=== PATIENT | female | born 1975 | race Caucasian/White ===

== ENCOUNTER → 2017-12-30 11:55 | Outpatient (CLI) | payer OTHER, SELFPAY ==
--- NOTE | 2017-12-30 12:03 | XR_ITS ---
XR chest 2V HISTORY: ITS.REASON: PNEUMONIA ORDERING PHYSICIAN: Darlin Cummings PATIENT AGE: 42 years COMPARISON: None FINDINGS: Unremarkable cardiovascular structures. Patchy increased density is present in the left lung base consistent with pneumonia. The remaining lungs are clear. No effusions No acute bony anomalies. IMPRESSION: Patchy left lower lobe pneumonia
== END ==
PROVIDERS: PCP Nurse Practitioner Family; Visit Provider Nurse Practitioner Family
DX: J18.9 Pneumonia, unspecified organism (principal)
CPT/HCPCS: 71046

== ENCOUNTER → 2018-01-16 15:29 | Outpatient (CLI) | payer OTHER, SELFPAY ==
--- NOTE | 2018-01-16 15:34 | XR_ITS ---
XR shoulder LT min 2V HISTORY: ITS.REASON: LEFT SHOULDER PAIN ORDERING PHYSICIAN: Yris Dillon MD PATIENT AGE: 42 years Comparison: None FINDINGS: No fracture or dislocation. No lytic or blastic change. There is normal mineralization. The joint spaces are well-preserved. No significant degenerative/arthritic changes. No erosive changes evident. IMPRESSION: Negative, no acute finding
== END ==
PROVIDERS: PCP Family Medicine; Visit Provider Family Medicine
DX: M25.512 Pain in left shoulder (principal)
CPT/HCPCS: 73030

== ENCOUNTER → 2019-07-15 14:00 | Outpatient (CLI) | payer OTHER, SELFPAY ==
--- NOTE | 2019-07-15 14:05 | XR_ITS ---
PROCEDURE: XR CHEST 2V CLINICAL HISTORY: BRONCHITIS COMPARISON: CXR CHEST(2 VIEWS-NOT PORTABLE) from 05/13/2013 CXR CHEST(2 VIEWS-NOT PORTABLE) from 12/26/2016 CXR2V XR chest 2V from 12/30/2017 FINDINGS: The cardiomediastinal silhouette and pulmonary vascularity are within normal limits. There is hyperinflation with some eventration of the diaphragms. No lobar consolidation or collapse. No acute bony abnormalities. IMPRESSION: Hyperinflation which may be seen with small airway disease otherwise negative Dictated by: Rusty Dinero MD 07/15/2019 14:28 Electronically signed by Rusty Dinero MD in [place] 07/15/2019 14:28
== END ==
PROVIDERS: PCP Family Medicine; Visit Provider Family Medicine
DX: J45.20 Mild intermittent asthma, uncomplicated (principal)
CPT/HCPCS: 71046

== ENCOUNTER → 2020-01-18 13:06 | Outpatient (CLI) | payer OTHER, SELFPAY ==
--- NOTE | 2020-01-18 13:14 | XR_ITS ---
PROCEDURE: XR CHEST PORTABLE CLINICAL HISTORY: COVID TEST Pneumonia COMPARISON: DX CXR CHEST(2 VIEWS-NOT PORTABLE) from 12/26/2016 CR CXR2V XR chest 2V from 12/30/2017 CR XR CHEST 2V from 07/15/2019 FINDINGS: The cardiomediastinal silhouette and pulmonary vascularity are within normal limits. Opacification is present in the lower lobe consistent with pneumonia. No acute bony abnormalities. IMPRESSION: Right lower lobe pneumonia Dictated by: Rusty Dinero MD 01/18/2020 13:57 Rusty Dinero MD in [facility] 01/18/2020 13:57
[2020-01-18 14:56] LABS: Basophils # 0.1 K/mm3 (0-0.2); Basophils % 0.5 % (0.1-2.0); Eosinophils # 0.5 K/mm3 (0.0-0.4); Eosinophils % 4.1 % (0.1-12.0); Hematocrit 40.5 % (37.0-47.0); Hemoglobin 13.4 g/dL (12.2-16.2); Lymphocytes # 2.8 K/mm3 (0.7-4.5); Lymphocytes % 24.3 % (10-50); Mean Corpuscular Hemoglobin 30.9 pg (27.0-31.2); Mean Corpuscular Volume 93.5 fl (81-99); Monocytes # 0.7 K/mm3 (0.1-1.0); Monocytes % 6.2 % (1.7-9.3); Neutrophils # 7.4 K/mm3 (1.8-7.8); Platelet Count 277 K/mm3 (142-424); Red Blood Count 4.33 M/mm3 (4.20-5.40); White Blood Count 11.4 K/mm3 (4.8-10.8)
[2020-01-20 15:43] LABS: Covid-19 Nasal PCR Sendout Lex Not Detected
== END ==
PROVIDERS: PCP Family Medicine; Visit Provider Family Medicine
DX: Z03.818 Encounter for observation for suspected exposure to other biological agents ruled out (principal)
CPT/HCPCS: 36415; 71045; 85025; U0004

== ENCOUNTER → 2020-02-09 12:30 | Outpatient (CLI) | payer OTHER, SELFPAY ==
--- NOTE | 2020-02-09 12:35 | XR_ITS ---
PROCEDURE: XR CHEST PORTABLE CLINICAL HISTORY: COVID 19 Follow-up pneumonia COMPARISON: CR CXR2V XR chest 2V from 12/30/2017 CR XR CHEST 2V from 07/15/2019 CR XR CHEST PORTABLE from 01/18/2020 FINDINGS: The cardiomediastinal silhouette and pulmonary vascularity are within normal limits. There remains consolidation in the right lung base may be slightly improved. The remaining lungs are clear. No acute bony abnormalities. IMPRESSION: Persistent right lower lobe infiltrate which may be slightly improved Dictated by: Rusty Dinero MD 02/09/2020 13:34 Rusty Dinero MD in [facility] 02/09/2020 13:34
[2020-02-09 13:20] LABS: Basophils # 0.1 K/mm3 (0-0.2); Basophils % 0.7 % (0.1-2.0); Eosinophils # 0.3 K/mm3 (0.0-0.4); Eosinophils % 2.9 % (0.1-12.0); Hematocrit 42.4 % (37.0-47.0); Hemoglobin 13.9 g/dL (12.2-16.2); Lymphocytes # 2.5 K/mm3 (0.7-4.5); Lymphocytes % 20.9 % (10-50); Mean Corpuscular HGB Conc 32.7 g/dL (31.8-35.4); Mean Corpuscular Volume 91.7 fl (81-99); Mean Platelet Volume 7.9 fl (7.4-10.4); Monocytes # 0.8 K/mm3 (0.1-1.0); Monocytes % 6.5 % (1.7-9.3); Neutrophils # 8.1 K/mm3 (1.8-7.8); Platelet Count 260 K/mm3 (142-424); Red Blood Count 4.63 M/mm3 (4.20-5.40); Red Cell Distribution Width 13.3 % (11.5-17.5); White Blood Count 11.8 K/mm3 (4.8-10.8)
[2020-02-10 09:31] LABS: Covid-19 Nasal PCR Sendout P&C NEGATIVE
== END ==
PROVIDERS: PCP Nurse Practitioner; Visit Provider Nurse Practitioner
DX: Z03.818 Encounter for observation for suspected exposure to other biological agents ruled out (principal)
CPT/HCPCS: 36415; 71045; 85025; U0004

== ENCOUNTER → 2020-03-07 12:37 | Outpatient (CLI) | payer OTHER, SELFPAY ==
--- NOTE | 2020-03-07 12:42 | XR_ITS ---
PROCEDURE: XR CHEST 2V CLINICAL HISTORY: PNEUMONIA OF RT LOWER LOBE DUE TO INFECTIOUS ORGANISM COMPARISON: CR XR CHEST PORTABLE from 02/09/2020 FINDINGS: The cardiomediastinal silhouette and pulmonary vascularity are within normal limits. Consolidation once again noted in the right lung base which may be slightly improved. New area of consolidation noted within the lingula. Upper lobes are clear No acute bony abnormalities. IMPRESSION: Mixed response with some improvement in the right basilar pneumonia but with developing pneumonia within the lingula Dictated by: Rusty Dinero MD 03/07/2020 14:55 Rusty Dinero MD in [facility] 03/07/2020 14:55
== END ==
PROVIDERS: PCP Family Medicine; Visit Provider Family Medicine
DX: J18.9 Pneumonia, unspecified organism (principal)
CPT/HCPCS: 71046

== ENCOUNTER → 2020-06-14 13:43 | Outpatient (CLI) | payer OTHER, SELFPAY ==
--- NOTE | 2020-06-14 13:43 | CT_ITS ---
PROCEDURE: CT HIGH RESOLUTION CHEST CLINICAL HISTORY: Bronchiectasis Evaluate for bronchiectasis Ongoing cough and drainage Pneumonia 12/2019. COMPARISON: DX XR CHEST 2V from 03/07/2020 TECHNIQUE: Axial images obtained with sagittal and coronal reformats. All CT scans at the facility use one or more dose reduction, viz: automated exposure control, ma/kV adjustment per patient size (including targeted exams where dose is matched to indication, i.e. head), or iterative reconstruction technique. FINDINGS: Calcifications are present in the thyroid gland on both sides. Normal thyroid size. No mediastinal or hilar mass or adenopathy. There are postsurgical changes from prior gastric bypass surgery. There are few scattered small pulmonary nodular opacities including a 3 mm nodule in the right upper lobe image 23, 4 mm noncalcified nodule right lower lobe image 40, 3 mm noncalcified nodule right lower lobe image 40, 4 mm noncalcified nodule right lower lobe image 45, 5 mm noncalcified nodule left lower lobe image 42, 3 mm noncalcified nodule left lower lobe image 34. Within the right middle lobe there is some consolidation with atelectatic change with scattered tree in bud opacities. There is volume loss in the medial aspect of the lingula. High-resolution images are obtained demonstrating some minimal bronchiectasis in the medial aspect of the right middle lobe. Minimal bronchiectasis within the lingula as well. No interstitial lung disease is evident. No acute bony anomalies. IMPRESSION: 1. There is mild consolidation/volume loss and scattered tree in bud opacities in the right middle lobe with some mild bronchiectasis. There is consolidation/volume loss within the lingula with minimal bronchiectasis. 2. Scattered small pulmonary nodules. These are 5 mm or less. Consider 6-12 month follow-up to confirm stability. Dictated by: Rusty Dinero MD 06/23/2020 12:13 Rusty Dinero MD in [place] 06/23/2020 12:13
--- NOTE | 2020-06-14 15:15 | PC.NURSE ---
PFT Completed without complication. Albuterol 0.083% given via HHN, per protocol, Pt tolerated tx well.
== END ==
PROVIDERS: PCP Family Medicine; Visit Provider Internal Medicine Pulmonary Disease
DX: J18.9 Pneumonia, unspecified organism (principal)
CPT/HCPCS: 71250; 94060; 94726; 94729

== ENCOUNTER → 2020-07-01 12:13 | Outpatient (CLI) | payer OTHER, SELFPAY | PROVIDERS: Visit Provider Internal Medicine Pulmonary Disease | DX: Z20.822 Contact with and (suspected) exposure to COVID-19 (principal) | CPT/HCPCS: 36415; U0003 ==

== ENCOUNTER 2020-07-04 08:36 | Day surgery (SDC) | payer OTHER, SELFPAY ==
[2020-06-29 13:26] VITALS: BMI 24.6
[2020-07-04] VITALS (11 sets, daily range): BP systolic 111–151; BP diastolic 71–98; PULSE 59–96; RESP 14–18; TEMP 36.4–36.7; O2SAT 96–100
--- NOTE | 2020-07-04 12:20 | XR_ITS ---
PROCEDURE: XR CHEST PORTABLE CLINICAL HISTORY: bronchoscopy Follow-up bronchoscopy COMPARISON: CR XR CHEST PORTABLE from 02/09/2020 DX XR CHEST 2V from 03/07/[address] HIGH RESOLUTION CHEST from 06/14/2020 CR XR CHEST AP from 07/04/2020 FINDINGS: The cardiomediastinal silhouette and pulmonary vascularity are within normal limits. There is no evidence of pneumothorax. There is increased density in the right lower lung zone consistent with pneumonia which appears slightly worse from 02/09/2020. Infiltrate also noted within the lingular region. No acute bony abnormalities. IMPRESSION: Slight worsening right middle lobe pneumonia with persistent pneumonia within the lingula. No evidence of pneumothorax Dictated by: Rusty Dinero MD 07/04/2020 12:37 Rusty Dinero MD in [place] 07/04/2020 12:37
--- NOTE | 2020-07-04 12:34 | HMH.BRONCH ---
- Procedure: Date: 07/04/20 Patient Date of :: 1975 Procedure Performed:: Bronchoscopy with bronchoalveolar lavage and transbronchial biopsy Indications:: Atypical pneumonia, bronchectasis, recurrent bronchitis Performing Provider:: Bibi Singh MD Referring Provider:: Dr: Mignon Dillon Sedation:: General anesthesia Procedure:: Bronchoscopy: None Clean Diagnostic bronchoscopy was advanced to the ET tube. Airways appeared grossly normal. Copious amount of secretions were noted predominantly left upper lobe bronchi. Bronchoalveolar lavage was performed in the RML and left lingula , total of 60 cc NS was instilled in each lobe with a return og 20cc. BAL samole was sent for bacterial, AFB fungal stain and culture and Cytopathology. Transbronchial biopsy were performed in RML Medial segment with total seven biopsies performed, 5 were sent in formalin for cytopathology, remaining 2 biopsy samples each sent for bacterial, AFB fungal stain and culture. Patient tolerated the procedure well with no complications. Will follow with the results in the clinic in 507 days Findings:: See the procedure note Specimens:: Alveolar lavage and trans bronchial biopsies Recommendations:: See the procedure notes Complications:: None Estimated blood obtained (mL): 0
--- NOTE | 2020-07-04 13:35 | P.PN_ITS ---
[facility] Anesthesia Checklist - Patient Identification Patient Identification: Arm Band - Structural Data Admitted From: Home Planned Operative Procedure/s: Bronchoscopy Consent for Planned Operative Procedure(s) Verified: Yes Verified Documents: Surgical Consent, History and Physical - NPO Status Verified Time NPO: 00:00 - Additional verifications Anesthesia Reactions: No Hx Blood Transfusions: No Blood Transfusion Reaction: No - Airway Assessment C-Spine Mobility Assessed: Yes TMJ Mobility Assessed: Yes Dentition: Good Dentition - Neurological Assessment Level of Consciousness: Awake, Alert - Anesthesia Plan Anesthesia Risk discussed: Yes Anesthesia Plan: Verified ASA Class: II Anesthesia Type: General [facility] History Medical History: Reports:: Anxiety, Depression, MRSA (abdomen, ankle) Denies:: Cancer, Diabetes Mellitus Type 1, Diabetes Mellitus Type 2, Internal Pacemaker, Seizures *Have you ever received a pneumonia vaccine?: Yes *Have you received a flu vaccine this season?: Yes Other Medical History: Denies: Blood Transfusion Reaction Anesthesia experience/problems:: None Laterality Cases: Bilateral: Tonsillectomy Other Surgeries: Yes: Bariatric Surgery, , Hysterectomy-Partial, Thyroidectomy, Other. No: Pacemaker Amputation: No Fractures: No - *Social History Last grade of school completed: High school graduate Smoking Status: Former smoker # Packs/Day (cigarettes): 1 #Yrs smoked (if former smoker): 1 Alcohol Intake: current Alcohol Intake Frequency:: holidays/special occasions only Substance Use Type: denies use *Occupational Status:: employed Housing: house Household Members: spouse *Travel in the last 8 weeks: None - Psychiatric History Pschychiatric History:: Reports:: Anxiety, Depression Family Hx:: Diabetes, Heart Attack, Stroke
--- NOTE | 2020-07-04 13:36 | P.PN_ITS ---
[facility] Anesthesia Record Part I Intake, IV Amount: 1,000 Estimated blood loss (mL): 1 Urine output (mL): 0 Blood Pressure: 151/84 SaO2: 96 Pulse Rate: 96 Respiratory Rate: 14 Temperature: 97.6 F Patient is:: Awake, Drowsy Stable to PACU at:: 12:20
== END 2020-07-04 13:33 | disposition home or self-care (01) ==
LOC: OR 08:38
PROVIDERS: PCP Family Medicine; Visit Provider Internal Medicine Pulmonary Disease
PROC: (CPT 31624; principal; 2020-07-04 10:15)
DX: R05 Cough (principal); Z87.01 Personal history of pneumonia (recurrent); J18.9 Pneumonia, unspecified organism; J40 Bronchitis, not specified as acute or chronic
CPT/HCPCS: 31624; 31628; 71045; 87070; 87077; 87102; 87116; 87186; 87205; 87206; 87220; 89051; 94640; J2405

== ENCOUNTER → 2021-04-21 07:42 | Outpatient (CLI) | payer OTHER, SELFPAY ==
--- NOTE | 2021-04-21 07:46 | CT_ITS ---
FINAL REPORT TECHNIQUE: Axial CT images were performed from the lung apices through the upper abdomen utilizing a high-resolution protocol. Coronal reformats were submitted. This study was performed with techniques to keep radiation doses as low as reasonably achievable (ALARA). Individualized dose reduction techniques using automated exposure control or adjustment of mA and/or kV according to the patient's size were employed. CLINICAL HISTORY: BRONCHIECTASIS,PULMONARY NODULE COMPARISON: June 14 2020 FINDINGS: There is no axillary adenopathy. There is no hilar or mediastinal mass or adenopathy. There are calcifications in the thyroid gland bilaterally which are stable and likely benign. Heart size is normal. There is no pericardial or pleural effusion. Limited images of the upper abdomen reveal post operative changes in the stomach and cholecystectomy. Mild bronchiectasis in the right middle lobe appears stable. Right middle lobe nodules are worse. A lateral right middle lobe nodule measures 7 mm and is well seen on axial image 39. There is persistent atelectasis or scarring in the lingula but there are improved small nodules in the lingula. There are multiple, less than 1 cm bilateral lower lobe nodules which appears stable in size and appearance. There is a stable, lateral right lower lobe nodule on image 41 measures 4 mm. There is a lateral left lower lobe nodule measuring 3 mm well seen on image 40 which is stable. Other previously identified nodules are stable. IMPRESSION: Stable mild bronchiectasis in the right middle lobe. Worsening nodularity in the lateral right middle lobe. Improved nodularity in the lingula. Stable multiple other small nodules. Reviewed, Interpreted and Dictated by Kyle Cook III, MD Transcribed by Dee Dee Thao Authenticated by Kyle Cook III, MD on 04/21/2021 11:05:[address] [facility]
== END ==
PROVIDERS: PCP Family Medicine; Visit Provider Family Medicine
DX: R91.1 Solitary pulmonary nodule (principal); J47.9 Bronchiectasis, uncomplicated
CPT/HCPCS: 71250

== ENCOUNTER → 2021-07-18 07:49 | Outpatient (CLI) | payer OTHER, SELFPAY ==
--- NOTE | 2021-07-18 07:53 | MM_ITS ---
PROCEDURE INFORMATION: Exam: Bilateral Screening 3D Mammography Exam date and time: 07/18/2021 8:07 AM Age: 45 years old Clinical indication: Screening examination. No family history of breast cancer. TECHNIQUE: Imaging protocol: Bilateral Screening tomosynthesis and 2D mammography including computer-aided detection (CAD) when performed. COMPARISON: DMSB DIGITAL MAMM-SCREEN BILATERAL 05/02/2012 1:15 PM FINDINGS: MAMMOGRAPHY: Breast composition: There are scattered areas of fibroglandular density. Mass: None. Architectural distortion: Mild diffuse bilateral architectural distortion with history of reduction mammoplasty. No suspicious architectural distortion. Calcifications: No suspicious calcifications. Asymmetric density: None. Skin thickening: None. Axillary adenopathy: None. IMPRESSION: No mammographic evidence of malignancy. Annual screening is recommended unless otherwise clinically indicated. ASSESSMENT: BI-RADS Category 2: Benign
== END ==
PROVIDERS: PCP Family Medicine; Visit Provider Family Medicine
DX: Z12.31 Encounter for screening mammogram for malignant neoplasm of breast (principal); N60.19 Diffuse cystic mastopathy of unspecified breast
CPT/HCPCS: 77063; 77067

== ENCOUNTER → 2022-04-11 07:13 | Outpatient (CLI) | payer OTHER, SELFPAY ==
--- NOTE | 2022-04-11 07:13 | CT_ITS ---
FINAL REPORT TECHNIQUE: Thin section axial CT images of the facial bones and sinuses were obtained without contrast. Coronal reformatted images were also obtained.This study was performed with techniques to keep radiation doses as low as reasonably achievable, (ALARA). Individualized dose reduction techniques using automated exposure control or adjustment of mA and/or kV according to the patient''''s size were employed. CLINICAL HISTORY: sinusitis chronic recurrent COMPARISON: none FINDINGS: There is severe mucosal thickening in the maxillary sinuses. Mucosal thickening obstructs the right maxillary sinus ostium and infundibulum. Left ostiomeatal unit is normal. No fluid levels are identified. The nasal septum is in the midline. No fracture or acute bony abnormality is identified. IMPRESSION: Maxillary sinusitis. Reviewed, Interpreted and Dictated by Kyle Cook III, MD Transcribed by Remedios Mendez Authenticated and . [facility]
== END ==
PROVIDERS: PCP Family Medicine; Visit Provider Family Medicine
DX: J32.8 Other chronic sinusitis (principal)
CPT/HCPCS: 70486

== ENCOUNTER → 2022-10-09 12:54 | Outpatient (CLI) | payer OTHER, SELFPAY ==
--- NOTE | 2022-10-09 13:01 | MM_ITS ---
PROCEDURE INFORMATION: Exam: MG Bilateral Screening 3D Mammography Exam date and time: 10/09/2022 12:53 PM Age: 47 years old Clinical indication: Screening examination; Family history of breast cancer in aunt and Cousin TECHNIQUE: Imaging protocol: Bilateral Screening tomosynthesis and 2D mammography including computer-aided detection (CAD) when performed. COMPARISON: 1. MG MM DIG SCREENING MAMM BI W/CAD 07/18/2021 8:07 AM 2. MG DMSB DIGITAL MAMM-SCREEN BILATERAL 05/02/2012 1:15 PM FINDINGS: MAMMOGRAPHY: Breast composition: There are scattered areas of fibroglandular density. Mass: None. Architectural distortion: None. Calcifications: No suspicious calcifications. Asymmetric density: None. Skin thickening: None. Axillary adenopathy: None. IMPRESSION: No mammographic evidence of malignancy. Annual screening is recommended unless otherwise clinically indicated. ASSESSMENT: BI-RADS Category 1: Negative
== END ==
PROVIDERS: PCP Family Medicine; Visit Provider Family Medicine
DX: Z12.31 Encounter for screening mammogram for malignant neoplasm of breast (principal)
CPT/HCPCS: 77063; 77067

== ENCOUNTER → 2023-01-03 12:57 | Outpatient (CLI) | payer OTHER, SELFPAY ==
--- NOTE | 2023-01-03 13:07 | XR_ITS ---
FINAL REPORT CLINICAL HISTORY: BRONCHIECTASIS cough for over 3 weeks wheezing FINDINGS: TWO-VIEW CHEST The heart size is normal. The mediastinum is normal. The lungs are clear. There is no pneumothorax. IMPRESSION: No acute cardiopulmonary process. Reviewed, Interpreted and Dictated by Buster Page MD Transcribed by Darlin Kerr Authenticated and [facility]
== END ==
PROVIDERS: PCP Family Medicine; Visit Provider Family Medicine
DX: J47.9 Bronchiectasis, uncomplicated (principal); Z87.891 Personal history of nicotine dependence
CPT/HCPCS: 71046

== ENCOUNTER 2023-11-29 12:08 | Outpatient (CLI) | payer OTHER, SELFPAY ==
--- NOTE | 2023-11-29 12:25 | ECG_ITS ---
APPROVED REPORT Exam: Resting ECG HR:56 bpm ECG Measurements Heart Rate 56 AXES DE 141 P 55 QRSd 93 QRS 98 QT 423 T 57 QTc 416 Conclusion SINUS BRADYCARDIA BORDERLINE RIGHT AXIS DEVIATION [QRS AXIS > 90] BORDERLINE ECG UNCONFIRMED REPORT Electronically signed by : Milton Moss MD 11/30/2023 08:29:49
== END 2023-11-29 23:59 | disposition home or self-care (01) ==
LOC: RT 12:10
PROVIDERS: PCP Family Medicine; Visit Provider Family Medicine
DX: R55 Syncope and collapse (principal)
CPT/HCPCS: 93005; 93225; 93227

== ENCOUNTER 2023-12-20 13:20 | Outpatient (CLI) | payer OTHER, SELFPAY ==
--- NOTE | 2023-12-20 13:22 | MM_ITS ---
PROCEDURE INFORMATION: Exam: MG Bilateral Screening 3D Mammography Exam date and time: 12/20/2023 1:10 PM Age: 48 years old Clinical indication: Screening examination TECHNIQUE: Imaging protocol: Bilateral Screening tomosynthesis and 2D mammography including computer-aided detection (CAD) when performed. COMPARISON: 1. MG MM DIG SCREENING MAMM BI W/CAD 10/09/2022 12:53 PM 2. MG MM DIG SCREENING MAMM BI W/CAD 07/18/2021 8:07 AM FINDINGS: MAMMOGRAPHY: Breast composition: There are scattered areas of fibroglandular density. Mass: No suspicious masses. Architectural distortion: None. Calcifications: No suspicious calcifications. Asymmetric density: None. Skin thickening: None. Axillary adenopathy: None. IMPRESSION: No mammographic evidence of malignancy. Annual screening is recommended unless otherwise clinically indicated. ASSESSMENT: BI-RADS Category 1: Negative.
== END 2023-12-20 23:59 | disposition home or self-care (01) ==
LOC: RAD 13:21
PROVIDERS: PCP Family Medicine; Visit Provider Family Medicine
DX: N60.19 Diffuse cystic mastopathy of unspecified breast (principal); Z12.31 Encounter for screening mammogram for malignant neoplasm of breast
CPT/HCPCS: 77063; 77067

== ENCOUNTER 2023-12-25 09:16 | Outpatient (CLI) | payer OTHER, SELFPAY ==
[2023-12-25 09:47] LABS: Basophils # 0.1 K/mm3 (0-0.2); Eosinophils # 0.3 K/mm3 (0.0-0.4); Eosinophils % 3.2 % (0.1-12.0); Hemoglobin 12.7 g/dL (12.2-16.2); Lymphocytes # 2.3 K/mm3 (0.7-4.5); Lymphocytes % 27.3 % (10-50); Mean Corpuscular HGB Conc 32.6 g/dL (31.8-35.4); Mean Corpuscular Hemoglobin 27.8 pg (27.0-31.2); Mean Corpuscular Volume 85.3 fl (81-99); Mean Platelet Volume 7.7 fl (7.4-10.4); Monocytes # 0.6 K/mm3 (0.1-1.0); Monocytes % 6.7 % (1.7-9.3); Neutrophils # 5.1 K/mm3 (1.8-7.8); Neutrophils % 61.8 % (37.0-80.0); Platelet Count 289 K/mm3 (142-424); Red Blood Count 4.57 M/mm3 (4.20-5.40); Red Cell Distribution Width 14.9 % (11.5-17.5); White Blood Count 8.3 K/mm3 (4.8-10.8)
[2023-12-25 10:03] LABS: D-Dimer < 0.25 ug/mL (0.0-0.5)
[2023-12-25 10:47] LABS: Alanine Aminotransferase 10 U/L (12-78); Albumin Level 4.1 g/dl (3.5-5.0); Alkaline Phosphatase 102 U/L (38-126); Anion Gap 11.6 mEq/L (5-15); Aspartate Amino Transferase 16 U/L (14-36); Bilirubin,Direct 0.2 mg/dl (0.0-0.4); Bilirubin,Indirect 0.3 mg/dL (0.0-0.9); Bilirubin,Total 0.5 mg/dl (0.2-1.3); Bilirubin,Unconjugated 0.2 mg/dL (0.0-1.1); Blood Urea Nitrogen 7 mg/dl (7-17); Calcium 8.9 mg/dl (8.4-10.2); Carbon Dioxide 28 mmol/L (22.0-30.0); Chloride 107 mmol/L (98-107); Cholesterol 129 mg/dl (140-200); Estimated Glomerular Filt Rate 90 ml/min (>60); GFR (African American) 109 ML/MIN (>60); Glucose 80 mg/dl (74-100); HDL Cholesterol 63 mg/dl (40-60); Potassium 3.6 mmoL/L (3.5-5.1); Sodium 143 mmol/L (136-145); Total Protein,Serum 6.2 g/dl (6.3-8.2); Triglycerides 62 mg/dl (30-150); VLDL Cholesterol 12 mg/dL (0-40)
[2023-12-25 10:58] LABS: Direct LDL Cholesterol 60.42 mg/dL (100-129)
[2023-12-25 11:04] LABS: Free T4 (Free Thyroxine) 1.02 ng/dl (0.78-2.19)
[2023-12-25 12:10] LABS: Thyroid Stimulating Hormone 0.65 uIU/mL (0.465-4.68)
== END 2023-12-25 23:59 | disposition home or self-care (01) ==
LOC: LAB 09:17
PROVIDERS: PCP Family Medicine; Visit Provider Nurse Practitioner
DX: E78.5 Hyperlipidemia, unspecified (principal); R00.0 Tachycardia, unspecified; R53.83 Other fatigue; R55 Syncope and collapse; Z72.0 Tobacco use; R94.31 Abnormal electrocardiogram [ECG] [EKG]
CPT/HCPCS: 36415; 80048; 80061; 80076; 84439; 84443; 85025; 85378; 93270

== ENCOUNTER 2024-01-10 07:44 | Outpatient (CLI) | payer OTHER, SELFPAY ==
--- NOTE | 2024-01-10 | CA_ITS ---
APPROVED REPORT Exam: Exercise Treadmill Technologist: Nayeli Cavanaugh Ht: 5 ft 7 in Wt: 151 lbs BSA: 1.79 m2 HR: 85 bpm BP: 130/87 mmHg Rhythm: Nsr, rightward axis, non specific ST abns Medical History Medical History: Hyperlipidemia Medications: Alprazolam, Azelastine, Cariprazine, Cetirizine, Vitamin D3, Vitamins B12, Lexapro, Flonase, Montelukast, Omeprazole Allergies: Morphine Cardiac Risk Factors: Hyperlipidemia Stress Test Details Test: Exercise stress testing was performed using a modified Prabhjot protocol. HR Resting HR: 85 bpm Max Heart Rate (APMHR): 173.584136 bpm Max HR Achieved: 167 bpm Target HR (85% APMHR): 147.692106 bpm % of APMHR: 96.53 Recovery HR: 99 bpm BP Resting BP: 130.0/87.0 mmHg Max BP: 198.0/100.0 mmHg Recovery BP: 129.0/80.0 mmHg ECG Resting ECG: Nsr, rightward axis, non specific ST abns Stress ECG Conclusion Pt exercised 4:17 on Prabhjot protocol Max HR: 167 % of PM: 96% Max BP: 198/100 Mets: 6.8 Test stopped due to: near syncope Pt seeing spots, tingling all over, similar to her fainting spells No chest pain Rare PAC Apprx 1mm horizontal ST depression inferiorly and 0.75mm laterally EKG changes borderline positive for ischemia but with reduced specificity due to baseline abns Near syncope during exercise GXT only (no imaging) Electronically signed by : Antonella Reynoso MD 01/20/2024 13:03:18
--- NOTE | 2024-01-10 07:53 | CA_ITS ---
APPROVED REPORT EXAM: Comprehensive 2D, Doppler, and color-flow Echocardiogram Over Hauler Helper: Lorraine Broussard RVT Ht: 5 ft 7 in Wt: 151lbs BSA: 1.79 BP: 127/81 mmHg Indications: FATIGUE,TACHYCARDIA,SYNCOPE,ABN EKG,SMOKER,HLD 2D Dimensions IVSd 1.18 cm F: 0.6-1.0 LVEF (Visual) 53.00 % PWd 0.58 cm F: 0.6 - 1.0 LA Volume 27.70 mL LVDd 3.98 cm F: 3.9 - 5.3 LA Volume Index 15.39 mL/m2 (M/F) 16-34 LVDs 2.91 cm F: 2.2 - 3.5 M-Mode Dimensions LA Diam 3.41 cm (1.9-4.0) TAPSE 2.30 (<1.7) LV Diastology E Decel Time 150 (160-240 msec) E/A Ratio 0.9 Aortic Valve TAMIKO Index 1.56 cm2/m2 AoV Peak Jordan. 108.0 (50-130 cm/s) AO Peak GR. 4.70 mmHg AO Mean GR. 2.70 (<5 mmHg) AO VTI 22.0 (18-25 cm) TAMIKO (VTI) 2.87 (2.5-4.5 cm2) Mitral Valve MV E Max Jordan. 66.0 (40-130 cm/s) MV A Velocity 75.0 (40-130 cm/s) E/A Ratio 0.87 MV PHT 44.0 ms Pulmonary Valve PV Peak Velocity 69.0 (50-150 cm/s) Tricuspid Valve TR P. Velocity 274.00 cm/s RAP Estimate 10.00 mmHg RVSP 40.00 mmHg Left Ventricle The left ventricle is normal size. The left ventricular systolic function is normal. The left ventricular ejection fraction is within the normal range. There is normal left ventricular wall thickness. There is normal LV segmental wall motion. The left ventricular diastolic function is normal. LVEF is 55%. Right Ventricle The right ventricle is normal size. The right ventricular systolic function is normal. Atria The left atrium size is normal. The right atrium size is normal. There is no Doppler evidence of interatrial shunt. Aortic Valve Aortic valve opens well. There is no aortic valvular stenosis. No aortic regurgitation is present. Mitral Valve The mitral valve is normal in structure. No evidence of mitral valve stenosis. Trace mitral regurgitation. Tricuspid Valve Tricuspid valve is grossly normal in structure and function. Mild tricuspid regurgitation. RVSP is 25-30 mmHg. Pulmonic Valve The pulmonary valve is normal in structure. Trace pulmonic regurgitation. Great Vessels The aortic root is normal in size. The ascending aorta is not well-visualized. IVC is normal in size and collapses >50% with inspiration. Pericardium There is no pericardial effusion. Other Information Study Quality: Fair Conclusion Normal biventricular systolic function. Mild TR. Electronically signed by : Antonella Reynoso MD 01/20/2024 12:15:08
== END 2024-01-10 23:59 | disposition home or self-care (01) ==
LOC: RT 07:45
PROVIDERS: PCP Family Medicine; Visit Provider Nurse Practitioner
DX: R55 Syncope and collapse (principal); R00.0 Tachycardia, unspecified; R53.83 Other fatigue; E78.5 Hyperlipidemia, unspecified
CPT/HCPCS: 93017; 93018; 93306

== ENCOUNTER 2024-02-03 07:20 | Outpatient (CLI) | payer OTHER, SELFPAY ==
--- NOTE | 2024-02-03 07:21 | CT_ITS ---
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 A noncontrast coronary calcium scan was performed. A CT attenuation threshold of 130 Hounsfield units (HU) was used for the detection of calcium in contiguous voxels of 1 sq mm in area to be counted as individual lesions. Bolus tracking in the ascending aorta with a threshold of 180 HU was performed. Immediately afterwards, ECG synchronized cardiac CT was then performed from the cardiac base to apex using retrospective gating with ECG tube current modulation. A total of 85 mL of Isovue 370 mg/mL contrast medium was administered at 5 mL/sec followed by a saline flush using a biphasic injection protocol. A tube voltage of 120 KVp was used. The patient received the following medications prior to the cardiac CT. 0.8 mg of sublingual nitroglycerin The average heart rate at the time of acquisition was 59 bpm and regular. Image Reconstruction Transaxial images were reconstructed at 0.67 mm slide thickness. Data was reviewed interactively on an advanced workstation capable of 2 and 3-dimensional displays in all conventional reconstruction formats, including multiplanar reformations, maximum intensity projections, curved multiplanar reformations, and volume rendered reconstructions. When applicable, selected routine images describing the relevant coronary anatomy and pathology were saved and sent to PACS. Complications None Technical Quality Overall image quality was good. Coronary artery opacification was adequate. Total DLP (Dose-Length Product) is 1492.4 mGy-cm. The reported value represents the total of one or more individual components during the CT acquisition of this date and at this time, and as such, the same value may appear in more than one CT report depending on the interpreting/reporting physicians. COMPARISON None FINDINGS CT Coronary Calcium Scoring LMA (Left Main Artery) = 0 LAD (Left Anterior Descending) = 0 LCX (Left Coronary Circumflex) = 0 RCA (Right Coronary Artery) = 0 Total Calcium Score = 0 using the AJ-130 method. The interpretation of the calcium heart score is based on the following continuum*: 0 = no calcified plaque detected (risk of coronary artery disease is very low ??? less than 5%) 1-10 = calcium detected in extremely minimal levels (risk of coronary diseases is still low ??? less than 10%) 11-100 = mild levels of plaque detected with certainty (mild or minimal narrowing of heart arteries is likely) 101-400 = definite,at least moderate levels of plaque detected (relatively high risk of a heart attack within 3-5 years) >401-999 = extensive levels of plaque detected (high risk of heart attack, high levels of vascular disease are present, high likelihood of at least one significant coronary narrowing) *The calcium heart score quantifies the burden of coronary calcification/plaque in the coronary arteries. The calcium heart score is not able to evaluate the presence or burden of non-calcified (i.e. soft) plaque. There is no identifiable calcification in the aortic valve, mitral annulus or mitral valve, pericardium, or myocardium. Coronary CT Angiography The coronary arterial system is right dominant. Quantitative Stenosis Grading: Left Main (LM): The left main originates normally from the left sinus of Valsalva. The LM bifurcates into the left anterior descending artery and left circumflex artery. The LM is patent with no evidence of atherosclerosis. Left Anterior Descending (LAD) and Diagonal Branches: The LAD gives off 2 diagonal branch(es). The LAD and its branches are patent with no evidence of atherosclerosis. There is no evidence of LAD-myocardial bridge. Left Circumflex (LCX) and Obtuse Marginals (OM): The LCX gives off 1 Obtuse Marginal (OM) branch(es). The LCX and its branches are patent with no evidence of atherosclerosis. Right Coronary Artery (RCA): The RCA originates normally from the right sinus of Valsalva. The RCA gives off a posterior descending artery (PDA) and posterolateral (PL) branches. The RCA and its branches are patent with no evidence of atherosclerosis. Non-Coronary Cardiac Findings: Analysis of the left ventricular (LV) structure and function was performed after 3-D reconstruction of the LV from axial images, with user-corrected automatic contouring for assessment of LV volumes and user-defined reconstruction from oblique planes for measurement of 3-D cardiac structure and function. -The left ventricle systolic function is normal. -There is no left atrial appendage filling defect. Two right pulmonary veins and two left pulmonary veins drain normally into the left atrium. -No pericardial thickening or calcification. -Central and branch pulmonary arteries in the [id number] are unremarkable. -Thoracic aorta within the visualized thoracic aortic-branches in the [id number] is unremarkable. Extracardiac Structures No significant extra-cardiac findings. Note, however, that this study is focused on the cardiac findings. IMPRESSION -Absence of coronary calcification with an Agatston score = 0 using the AJ-130 method. -No evidence of significant flow-limiting atherosclerosis of the coronary arteries. -No evidence of coronary anomalies or myocardial bridges. -CAD-RADS 0. Management recommendations per ACC/AHA guidelines*, as clinically appropriate. *Recommendations: CAD RADS 0: Reassurance. Consider non-atherosclerotic causes of chest pain. CAD RADS 1: Consider non-atherosclerotic causes of chest pain. Consider preventive therapy and risk factor modification. CAD RADS 2: Consider non-atherosclerotic causes of chest pain. Consider preventive therapy and risk factor modification, particularly for patients with nonobstructive plaque in multiple segments. CAD RADS 3: Consider further functional testing. Consider symptom-guided anti-ischemic and preventive pharmacotherapy as well as risk factor modification per published guideline statements. CAD RADS 4A: Consider further functional testing or invasive coronary angiography with revascularization per published guideline statements. Consider symptom-guided anti-ischemic and preventive pharmacotherapy as well as risk factor modification per published guideline statements. CAD RADS 4B: Invasive coronary angiography recommended with revascularization per published guideline statements. Consider symptom-guided anti-ischemic and preventive pharmacotherapy as well as risk factor modification per published guideline statements. CAD RADS 5: Consider invasive angiography and/or viability assessment with revascularization per published guideline statements. Consider symptom-guided anti-ischemic and preventive pharmacotherapy as well as risk factor modification per published guideline statements. CRITICAL RESULT None COMMUNICATION Per this written report The coronary and cardiac findings of this CCTA were reviewed, reported, and signed by Sergey Reynoso MD (Supervisor Records Change) Conclusion Electronically signed by : Antonella Reynoso MD 02/05/2024 12:56:03
[2024-02-03 07:30] VITALS: BMI 23.2
[2024-02-03 07:39] VITALS: BP 129/87; PULSE 65; RESP 16; TEMP 36.6; O2SAT 100
[2024-02-03 07:55] VITALS: BP 149/99; PULSE 67; RESP 16; O2SAT 99
[2024-02-03 07:58] VITALS: BP 147/98; PULSE 63; RESP 16; O2SAT 100
[2024-02-03] MEDS: 0.9 % SODIUM CHLORIDE 50 ML VIAL IV (08:01)
[2024-02-03] MEDS: IOPAMIDOL-370 (76%);100ML BOTTLE 85 ML IV (08:01)
[2024-02-03 08:05] VITALS: BP 119/73; PULSE 62; RESP 16; O2SAT 100
== END 2024-02-03 08:17 | disposition home or self-care (01) ==
PROVIDERS: PCP Family Medicine; Visit Provider Nurse Practitioner
DX: R94.31 Abnormal electrocardiogram [ECG] [EKG] (principal); R94.39 Abnormal result of other cardiovascular function study; R55 Syncope and collapse; E78.49 Other hyperlipidemia
CPT/HCPCS: 75574; Q9967

== ENCOUNTER 2024-11-18 16:16 | Outpatient (CLI) | payer OTHER, SELFPAY ==
--- OUTSIDE RECORDS SUMMARY | 2024-11-18 16:19 | XMS_ITS | Clinical Summary ---
Author Organization Healthcare Address [address] [id number] Care Team Providers Care Mixer Wet Pour Name Role Phone Kraig Dillon MD Primary Care Provider [phone] Immunizations Immunization Administration Dates Next Due Tdap 10/09/2016 Social History Tobacco Use Types Packs/Day Years Used Date Smoking Tobacco: Every Day Comments Unknown Sex and Gender Information Value Date Recorded Sex Assigned at Not on file Legal Sex Female 8:34 PM EDT Gender Identity Not on file Sexual Orientation Not on file Last Filed Vital Signs Vital Sign Reading Time Taken Comments Blood Pressure 124/90 04/19/2017 9:51 AM EST Pulse 73 04/19/2017 9:51 AM EST Temperature 36.6 C (97.9 F) 04/19/2017 9:51 AM EST Respiratory Rate - - Oxygen Saturation - - Inhaled Oxygen Concentration - - Weight 70.3 kg (154 lb 15.7 oz) 04/19/2017 9:51 AM EST Height 172.7 cm (5' 8 ) 04/19/2017 9:51 AM EST Body Mass Index 23.57 04/19/2017 9:51 AM EST Plan of Treatment Not on file Care Teams Mixer Wet Pour Relationship Specialty Start Date End Date Kraig Dillon MD [address] [place] [id number] PCP - General 07/01/20
--- OUTSIDE RECORDS SUMMARY | 2024-11-18 16:19 | XMS_ITS | Clinical Summary ---
Author Organization [facility] Address [address] [place] [id number] Care Team Providers Care Director Of Community Life Name Role Phone Kraig Dillon MD Primary Care Provider [phone] Allergies Active Allergy Reactions Criticality Noted Date Comments Morphine Other (See Comments) Low 05/26/2018 NO REACTION LISTED Medications ALPRAZolam (XANAX) 0.5 MG tablet Take 1 tablet by mouth 4 (Four) Times a Day. Active cyanocobalamin 1000 MCG/ML injection 1 (One) Time. 9 Active omeprazole (priLOSEC) 40 MG capsule TAKE 1 CAPSULE BY MOUTH TWICE A DAY 60 capsule 9 Active Additional Information Patient taking differently: 40 mg Oral Daily, Informant: Self, Reported on 06/04/2024 Cholecalciferol (vitamin D3) 125 MCG (5000 UT) capsule capsule Take 2 capsules by mouth Daily. Active multivitamin with minerals tablet tablet Take 1 tablet by mouth Daily. Active Cariprazine HCl (Vraylar) 3 MG capsule capsule Take 1 capsule by mouth Daily. Active fexofenadine (MONAE) 180 MG tablet Take 1 tablet by mouth Daily. Active montelukast (SINGULAIR) 10 MG tablet Take 1 tablet by mouth Every Night. Active fluticasone (FLONASE) 50 MCG/ACT nasal spray Administer 2 sprays into the nostril(s) as directed by provider Daily. Active azelastine (ASTELIN) 0.1 % nasal spray Administer 2 sprays into the nostril(s) as directed by provider 2 (Two) Times a Day. Use in each nostril as directed Active albuterol (PROVENTIL) (2.5 MG/3ML) 0.083% nebulizer solution Take 2.5 mg by nebulization Every 4 (Four) Hours As Needed for Wheezing. Active escitalopram (LEXAPRO) 10 MG tablet Take 1 tablet by mouth Every Morning. Active bisoprolol (ZEBeta) 5 MG tablet Take 1 tablet by mouth Daily. Active rosuvastatin (CRESTOR) 10 MG tablet Take 1 tablet by mouth Daily. Active Active Problems Problem Noted Date Diagnosed Date S/P bariatric surgery 11/18/2019 Overview (11/18/2019): Added automatically from request for surgery [id number] Abdominal pain 11/12/2019 H/O: hypertension Migraines H/O hyperlipidemia Fatigue Depression Anxiety Resolved Problems Problem Noted Date Diagnosed Date Resolved Date Epigastric pain 11/18/2019 11/25/2019 Overview (11/18/2019): Added automatically from request for surgery [id number] Family History Medical History Relation Name Comments Diabetes Father Roger Depression Mother Janneth Hypertension Mother Janneth Heart disease Other FAMILY HX Hypertension Other FAMILY HX Obesity Other FAMILY HX Cancer Paternal Grandfather Pollo Relation Name Status Comments Father Roger Mother Janneth Other FAMILY HX Alive Paternal Grandfather Pollo Social History Tobacco Use Types Packs/Day Years Used Date Smoking Tobacco: Former Cigarettes 1 10 0 02/19/1996 - 02/18/2006 Passive Smoke Exposure: Past Smokeless Tobacco: Never Tobacco Cessation:Counseling Given: Yes Alcohol Use Standard Drinks/Week Comments Yes 0 (1 standard drink = 0.6 oz pur e alcohol) SOCIALLY Comments No Sex and Gender Information Value Date Recorded Sex Assigned at Not on file Legal Sex Female 12:52 PM EDT Gender Identity Not on file Sexual Orientation Not on file Last Filed Vital Signs Vital Sign Reading Time Taken Comments Blood Pressure 120/66 06/04/2024 9:36 AM EDT Pulse 73 06/04/2024 9:36 AM EDT Temperature 36.3 C (97.3 F) 06/04/2024 9:36 AM EDT Respiratory Rate 18 06/04/2024 9:36 AM EDT Oxygen Saturation 98% 06/04/2024 9:36 AM EDT Inhaled Oxygen Concentration - - Weight 71.6 kg (157 lb 12.8 oz) 06/04/2024 9:36 AM EDT Height 172.7 cm (5' 8 ) 06/04/2024 9:36 AM EDT Body Mass Index 23.99 06/04/2024 9:36 AM EDT Plan of Treatment Upcoming Encounters Date Type Department Care Team (Late st Contact Info) Description 06/04/2025 9:30 AM EDT Office Visit [facility] [address] [place] [address] Doretha Beck MD [address] [place] [address] Health Maintenance Due Date Last Done Comments Annual Gynecologic Pelvic an d Breast Exam 1975 MAMMOGRAM 2016 ANNUAL PHYSICAL 05/26/2018 HEPATITIS C SCREENING 05/26/2018 Pneumococcal Vaccine 0-49 (2 of 2 - PCV) 05/04/2021 05/04/2020 COLOGUARD 2021 COLON CANCER SCREENING 5 YEA R SIGMOIDOSCOPY 2021 COLONOSCOPY 2021 COLORECTAL CANCER SCREENING [address] CT COLONOGRAPHY 2021 FECAL OCCULT BLOOD TEST 2021 FIT Testing (1 year) 2021 INFLUENZA VACCINE 09/18/2024 12/27/2021, , 12/14/2019, Additional history exists TDAP/TD VACCINES (3 - Td or Tdap) 12/13/2028 019, 10/09/2016 Medical Devices Implanted Type Area Finish Specialist Device Identifier Shelf Expiration Date Model / Serial / Lot Clipapplr M/ Endo [id number] 5mm 33cm /[employer] - [id number] Implanted:Qty : 1 on 11/25/2019 by Harjit Croft MD at [facility] Implant N/A: Abdomen [employer] [facility] [employer] [facility] 07/18/2024 [id number] / / [id number] Insurance [facility] Advance Directives * CPR (Attempt to Resuscitate) (Latest Code Status on File) Date Activated Date Inactivated Comments 11/12/2019 2:33 PM 11/14/2019 6:19 PM Question Answer Comments Code Status (Patient has no pulse and is not breathing): CPR (Attempt to Resuscitate) Medical Interventions (Patie nt has pulse or is breathing): Full Level Of Support Discussed With: Patient Care Teams Director Of Community Life Relationship Specialty Start Date End Date Kraig Dillon MD [address] [facility] [address] [place] [id number] PCP - General Family Medicine 05/21/18
--- NOTE | 2024-11-18 16:20 | XR_ITS ---
PROCEDURE INFORMATION: Exam: XR Chest Exam date and time: 11/18/2024 4:21 PM Age: 49 years old Clinical indication: Cough and shortness of breath; Additional info: Bronchitis TECHNIQUE: Imaging protocol: Radiologic exam of the chest. Views: 2 views. COMPARISON: CR XR CHEST 2V 01/03/2023 1:21 PM FINDINGS: Lungs: Lung volumes are upper limits for normal. Patchy airspace opacity within the lingula appears similar compared to the prior chest x-ray. Findings may correspond to atelectatic change. There are a few small air bronchograms and potential areas of mild peribronchial thickening within the right middle lobe. Findings appear similar compared to the prior chest x-ray. No new focal dense airspace consolidation. No CHF. Pleural spaces: No large pleural effusion. No pneumothorax. Heart/Mediastinum: Heart size is normal. The mediastinal contours are smooth. Bones/joints: Osseous structures appear unremarkable. Mild scoliosis. IMPRESSION: No definitive acute findings within the chest. Patchy airspace opacity within the lingula appears similar may correspond to atelectatic change. There are a few small air bronchograms within the right middle lobe. Findings appear similar compared to the prior chest x-ray. No new focal airspace consolidation suspicious for a new pneumonia. No pleural effusion. No pneumothorax. Lungs appear minimally hyperexpanded.
== END 2024-11-18 23:59 | disposition home or self-care (01) ==
LOC: RAD 16:17
PROVIDERS: PCP Family Medicine; Visit Provider Physician Assistant
DX: J40 Bronchitis, not specified as acute or chronic (principal); R91.8 Other nonspecific abnormal finding of lung field
CPT/HCPCS: 71046